=== PATIENT | female | born 2000 | race Caucasian/White ===

== ENCOUNTER 2020-12-07 13:30 | Observation (INO) | payer OTHER ==
[~2020-12-07] VITALS: Ht 160 cm; Wt 93.9 kg
[2020-12-07 17:06] VITALS: BP 113/69
== END 2020-12-07 16:25 | disposition home or self-care (01) ==
LOC: MFCC 13:30
PROVIDERS: ADMIT Obstetrics & Gynecology; ATTEND Obstetrics & Gynecology
DX: O34.83 Maternal care for other abnormalities of pelvic organs, third trimester (principal); N89.8 Other specified noninflammatory disorders of vagina; Z3A.39 39 weeks gestation of pregnancy
CPT/HCPCS: 76815; G0378; Q0092; 59025; 81000

== ENCOUNTER 2020-12-07 20:15 | Inpatient (IN) | payer OTHER ==
[~2020-12-07] VITALS: Ht 160 cm; Wt 91.2 kg
[2020-12-07] MEDS ORDERED: CARBOPROST 250 MCG/ML AMP IM PRN (21:30)
[2020-12-07] MEDS ORDERED: METHYLERGONOVINE 0.2 MG/ML AMP IM PRN (21:30)
[2020-12-07] MEDS ORDERED: LACTATED RINGERS 500 ML IV ONE (21:30)
[2020-12-07] MEDS ORDERED: LACTATED RINGERS 1,000 ML IV SCH (21:30)
[2020-12-07 22:44] LABS: BASOPHILS % (AUTO) 0.2 % (0.0-2.0); EOSINOPHILS % (AUTO) 0.2 % (0.0-4.0); HEMATOCRIT 38.4 % (36-48); HEMOGLOBIN 12.9 g/dL (12.0-16.0); LYMPHOCYTES # (AUTO) 1.7 K/uL (2.5-16.5); LYMPHOCYTES % (AUTO) 21.9 % (20.5-51.1); MEAN CORPUSCULAR HEMOGLOBIN 30 pg (27-31); MEAN CORPUSCULAR HGB CONC 34 g/dL (33-37); MONOCYTES # (AUTO) 0.7 K/uL (0.8-1.0); MONOCYTES % (AUTO) 9.3 % (1.7-9.3); NEUTROPHILS # (AUTO) 5.3 K/uL (1.8-7.7); NEUTROPHILS % (AUTO) 68.4 % (42.2-75.2); PLATELET COUNT (AUTO) 142 K/uL (140-450); RED BLOOD CELL COUNT(AUTO) 4.27 MIL/uL (4.20-5.40); RED CELL DISTRIBUTION WIDTH 13.3 % (11.6-13.7); WHITE BLOOD COUNT (AUTO) 7.8 K/uL (4.8-10.8)
[2020-12-07 22:47] LABS: APPEARANCE,URINE SL CLOUDY (CLEAR); BILIRUBIN,URINE NEGATIVE (NEGATIVE); BLOOD, URINE 3+ (NEGATIVE); COLOR,URINE YELLOW (YELLOW); LEUKOCYTE ESTERASE ,URINE 1+ (NEGATIVE); NITRITE, URINE NEGATIVE (NEGATIVE); UGLUCOSE NEGATIVE (NEGATIVE)
[2020-12-07 23:12] LABS: ALBUMIN 2.8 g/dL (3.4-5.0); ANION GAP 14.7 (8-16); CARBON DIOXIDE 23.9 mmol/L (21-32); CREATININE 0.7 mg/dL (0.6-1.3); POTASSIUM 3.6 mmol/L (3.5-5.1); TOTAL BILIRUBIN 0.2 mg/dL (0.0-1.0)
[2020-12-07 23:22] LABS: RBC,URINE 20-50 /HPF (0-5)
[2020-12-08] MEDS: NALBUPHINE 10 MG/ML AMP IVP PRN ×2 (01:54→05:51)
[2020-12-08] MEDS ORDERED: MORPHINE SULFATE 5 MG/ML VIAL IVP PRN (02:00)
[2020-12-08] MEDS ORDERED: MORPHINE SULFATE 10 MG/ML VIAL ONE (03:22)
[2020-12-08] MEDS ORDERED: NALBUPHINE 10 MG/ML AMP ONE (05:48)
[2020-12-08] MEDS ORDERED: OXYTOCIN 20 UNITS/LR PREMIX 0 ML IV ONE (06:32)
[2020-12-08] MEDS ORDERED: OXYTOCIN 20 UNITS in LACTATED RINGERS 1,000 ML IV SCH (06:55)
[2020-12-08] MEDS ORDERED: LIDOCAINE MPF 1% 10 MG/ML VIAL INJ SCH (06:55)
[2020-12-08] MEDS ORDERED: OXYTOCIN 20 UNITS/LR PREMIX 1,000 ML IV ONE (07:14)
[2020-12-08] MEDS ORDERED: METHYLERGONOVINE 0.2 MG TAB PO PRN ×2 (11:10→11:35)
[2020-12-08] MEDS ORDERED: MEASLES, MUMPS, AND RUBELLA 1 VIAL SQVAC ONE (11:10)
[2020-12-08] MEDS ORDERED: OXYTOCIN 10 UNITS/ML VIAL IM PRN ×2 (11:10→11:35)
[2020-12-08] MEDS ORDERED: BENZOCAINE/MENTHOL 20%-0.5% 60 GM CAN TP PRN ×2 (11:10→11:35)
[2020-12-08] MEDS ORDERED: METHYLERGONOVINE 0.2 MG/ML AMP IM PRN ×2 (11:10→11:35)
[2020-12-08] MEDS ORDERED: IBUPROFEN 800 MG TAB PO PRN ×2 (11:10→11:35)
[2020-12-08] MEDS ORDERED: SIMETHICONE 80 MG TAB.CHEW PO PRN (11:35)
[2020-12-08] MEDS: IBUPROFEN 600 MG TAB PO PRN (18:12)
[2020-12-08] MEDS: DOCUSATE SODIUM 100 MG GELCAP PO PRN (18:13)
[2020-12-08] MEDS: bisacodyL 5 MG TABEC PO PRN (18:13)
[2020-12-09] MEDS: IBUPROFEN 600 MG TAB PO PRN ×3 (01:23→18:41)
[2020-12-09 06:03] LABS: HEMATOCRIT 25.3 % (36-48); HEMOGLOBIN 8.7 g/dL (12.0-16.0)
--- NOTE | 2020-12-09 07:28 | NUR ---
PATIENT HAS BEEN SCREENED AND CATEGORIZED LOW NUTRITION RISK. PATIENT WILL BE SEEN WITHIN 7 DAYS OF ADMISSION. 12/14/[address]
[2020-12-09] MEDS: bisacodyL 5 MG TABEC PO PRN (08:46)
[2020-12-09] MEDS: DOCUSATE SODIUM 100 MG GELCAP PO PRN (08:47)
[2020-12-09] MEDS ORDERED: IRON SUCROSE COMPLEX 100 MG/5 ML VIAL IVP SCH (11:30)
[2020-12-10] MEDS: IBUPROFEN 600 MG TAB PO PRN (03:07)
[2020-12-10 06:08] LABS: HEPATITIS B SURFACE ANTIGEN Negative (Negative)
[2020-12-10 09:09] LABS: HEMATOCRIT 28.8 % (36-48); HEMOGLOBIN 9.8 g/dL (12.0-16.0)
== END 2020-12-10 13:25 | disposition home or self-care (01) | DRG 560 ==
LOC: OBSVTOIN 20:15 → MLD 20:15 → MFCC 12-08 11:05
PROVIDERS: ADMIT Obstetrics & Gynecology; ATTEND Obstetrics & Gynecology
PROC: 10E0XZZ Delivery of Products of Conception, External Approach (ICD-10-PCS; principal; 2020-12-08)
DX: O69.81X0 Labor and delivery complicated by cord around neck, without compression, not applicable or unspecified (principal); Z37.0 Single live birth; D62 Acute posthemorrhagic anemia; Z20.822 Contact with and (suspected) exposure to COVID-19; Z3A.39 39 weeks gestation of pregnancy; O90.81 Anemia of the puerperium
CPT/HCPCS: 36415; 51702; 59409; 80053; 81001; 85018; 85025; 86592; 86762; 86886; 86900; 86901; 87086; 87340; J1756; J2270; J2300; J2590